=== PATIENT | female | born 1980 | race Caucasian/White ===

== ENCOUNTER 2018-07-20 00:16 | Emergency (ER) | payer BC ==
[~2018-07-20] VITALS: Ht 157.5 cm; Wt 58.5 kg
[2018-07-20] MEDS ORDERED: ZOLOFT100 MG ORAL (00:26)
--- NOTE | 2018-07-20 00:28 | NUR ---
ED Nurse Note: pt reports right ear pain and pressure since 2199. AO4. NAD. VSS.
[2018-07-20 00:29] VITALS: BP 120/75
[2018-07-20] MEDS ORDERED: Tetracaine 0.5% Opth 4ml Soln RIGHT EYE ONE (00:45)
[2018-07-20] MEDS ORDERED: Acetaminophen 500mg (ES) tab ORAL ONE (00:45)
--- NOTE | 2018-07-20 00:45 | NUR ---
ED Nurse Note: Urine collected; sent down to lab.
--- NOTE | 2018-07-20 00:48 | Emergency Room Report ---
History of Present Illness General Chief Complaint: Earache Source: Patient Present Illness HPI Patient is a 37-year-old female presented after increased right-sided ear pain. Patient reports having increased pain started tonight. This woke her up from sleep. Patient denies any recent trauma. She denies recent swimming. She denies any fever. She had previously been sick for several days with upper respiratory symptoms.Patient currently takes Zoloft. She denies any other medications. She is unsure if she is . Allergies: Coded Allergies: AMOXICILLIN (Verified Allergy, Intermediate, Rash, 07/20/18) PENICILLINS (Verified Allergy, Intermediate, Hives, 07/20/18) Patient History Past Medical History: see triage record Last Menstrual Period: 06/23/18 Now: No : 2 Para: 2 Reviewed Nursing Documentation: PMH: Agreed; PSxH: Agreed Nursing Documentation-PMH Past Medical History: No History, Except For History Of Psychiatric Problem: Yes - ANXIETY Review of Systems All Other Systems: negative except mentioned in HPI Physical Exam Vital Signs Date Time Temp Pulse Resp B/P (MAP) Pulse Ox O2 Delivery O2 Flow Rate FiO2 07/20/18 00:18 97.9 75 16 120/75 95 Room Air General Appearance: well appearing, no apparent distress, alert, GCS 15, non- toxic Head: normocephalic, atraumatic ENT: hearing grossly normal, normal voice, nasal congestion, other - right ear tm erythema bulging Neck: full range of motion, supple Respiratory: lungs clear, normal breath sounds, no respiratory distress, speaking full sentences Cardiovascular #1: normal inspection Gastrointestinal: normal inspection Musculoskeletal: normal inspection, no calf tenderness Neurologic: normal inspection, alert, oriented x3, responsive, heat treat worker III-XII nml as tested, normal gait Psychiatric: mood/affect normal Skin: no rash Medical Decision Making Diagnostic Impression: Primary Impression: Otitis media ER Course . Patient presented for ear pain. Differential diagnosis included was not limited to otitis media, malignant otitis externa, foreign body, cellulitis, mastoiditis, carotid dissection, myocardial infarction among others. Patient has a benign exam and does not appear to require any further imaging or laboratory testing at this time. Patient urine test was negative. Patient was given medications for symptomatic treatment.Patient was given prescription for Claritin as well as azithromycin due to otitis media. She was advised to follow-up for recheck with primary care physician. Last Vital Signs Date Time Temp Pulse Resp B/P (MAP) Pulse Ox O2 Delivery O2 Flow Rate FiO2 07/20/18 00:29 97.9 85 16 120/75 95 Room Air Status: improved Disposition: HOME, SELF-CARE Condition: Stable Scripts Loratadine/Pseudoephedrine (CLARITIN-D 12 HOUR TABLET) 1 Each Tab.er.12h 1 TAB ORAL EVERY 12 HOURS, #20 TAB Prov: Marvin Dc MD 07/20/18 Azithromycin* (ZITHROMAX*) 250 Mg Tablet 250 MG ORAL DAILY, #6 TAB 0 Refills Take two tables once daily for 1 day, then one tablet once daily for 4 days. Prov: Marvin Dc MD 07/20/18 Marvin Dc MD Jul 20, 2018 00:47
[2018-07-20] MEDS ORDERED: CLARITIN-D 121 EAC1 ORAL (00:50)
[2018-07-20] MEDS ORDERED: ZITHROMAX250 MG ORAL (00:50)
[2018-07-20 01:05] VITALS: BP 120/75
--- NOTE | 2018-07-20 01:05 | NUR ---
ED Nurse Note: Patient cleared for discharge per ERMD. NAD. VSS. Patient given prescriptions and discharge instructions; verbalized understanding. ID band removed. Patient ambulated steady with all personal belongings.
== END 2018-07-20 01:05 | disposition home or self-care (01) ==
LOC: EMR 00:45
DX: H66.91 Otitis media, unspecified, right ear (principal); F41.9 Anxiety disorder, unspecified; Z88.1 Allergy status to other antibiotic agents; Z88.0 Allergy status to penicillin; Z87.891 Personal history of nicotine dependence
CPT/HCPCS: 81025; 99282